=== PATIENT | male | born 1960 | race Caucasian/White ===

== ENCOUNTER 2018-07-30 17:34 | Emergency (ER) | payer SELFPAY ==
[~2018-07-30] VITALS: Ht 172.7 cm; Wt 120.0 kg
[2018-07-30 17:40] VITALS: Ht 172.7 cm; Wt 120.0 kg
[2018-07-30] MEDS ORDERED: SOD CHLORIDE 0.9% 500 ML IV STA (17:53)
[2018-07-30] MEDS ORDERED: ASPIRIN 81 MG TAB PO STA (17:53)
--- NOTE | 2018-07-30 18:53 | ERD ---
ER Documentation Chief Complaint Chief Complaint ANNE FROM CANCER CENTER C/O CHEST PAIN, NTG ADMINISTERED EN ROUTE HPI This is a 57-year-old male with a history of lymphoma diagnosed in February 2018 presenting from his cancer center complaining of chest pain and shortness of breath. He was given nitroglycerin prior to arrival with improvement of his symptoms. 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 He also has a history of CAD with heart attack, CHF, and hypertension. His daughter, he recently arrived in the [facility] a few weeks ago. He was not feeling well so he was taken to [facility] where he was diagnosed with lymphoma and admitted. He is currently still admitted at [facility]. He was at the radiology center getting radiation therapy as he has been doing every day for the past 2 weeks. That is when he developed the chest pain and he was brought here for evaluation. Currently the patient states he has no symptoms of chest pain and it has resolved after the nitroglycerin. He is not complaining of any shortness of breath. He does have swelling in his bilateral upper extremities but he states that is chronic and improved since he started treatment. He is still undergoing chemotherapy at the outside hospital as well. ROS All systems reviewed and are negative except as per history of present illness. Medications Home Meds No Active Prescriptions or Reported Meds Allergies Allergies: Coded Allergies: No Known Allergy (Unverified , 07/30/18) PMhx/Soc Medical and Surgical Hx: pt denies Medical Hx, pt denies Surgical Hx History of Surgery: Yes (HEART SX, CANCER BIOPSY) Anesthesia Reaction: No Hx Neurological Disorder: No Hx Respiratory Disorders: Yes (METASTATIC CANCER OVERLAPPING LT LUNG) Hx Cardiac Disorders: Yes (CHF, HTN) Hx Psychiatric Problems: No Hx Miscellaneous Medical Probl: Yes (METASTATIC LYMPHOMA) Hx Alcohol Use: No Hx Substance Use: No Hx Tobacco Use: Yes Smoking Status: Former smoker FmHx Family History: No diabetes Physical Exam Vitals Vital Signs Date Temp Pulse Resp B/P (MAP) Pulse Ox O2 O2 Flow FiO2 Time Delivery Rate 07/30/18 Nasal 2 18:38 Cannula 07/30/18 101 17 132/69 98 Room Air 2.0 18:36 (90) 07/30/18 98.4 97 22 132/69 97 17:40 (90) 07/30/18 Nasal 2 17:40 Cannula Physical Exam Const: No acute distress Head: Atraumatic Eyes: Normal Conjunctiva ENT: Normal External Ears, Nose and Mouth. Neck: Full range of motion. No meningismus. Resp: Clear to auscultation bilaterally Cardio: Regular rate and rhythm, no murmurs Abd: Soft, non tender, non distended. Normal bowel sounds Skin: No petechiae or rashes Back: No midline or flank tenderness Ext: No cyanosis, bilateral upper extremity pitting edema, left worse than right, chronic per patient. No bilateral lower extremity edema or calf tenderness Neur: Awake and alert, normal speech, no facial asymmetry, moving all extremities spontaneously Psych: Normal Mood and Affect Result Diagram: 07/30/18190307/30/181902 Results 24 hrs Laboratory Tests Test 07/30/18 19:03 07/30/18 19:04 Activated Partial Thromboplast Time 25.8 Sec Sodium Level 130 mmol/L Potassium Level 4.5 mmol/L Chloride Level 96 mmol/L Carbon Dioxide Level 26 mmol/L Anion Gap 8 Blood Urea Nitrogen 20 mg/dl Creatinine 0.55 mg/dl Est Glomerular Filtrat Rate mL/min > 60 mL/min Glucose Level 134 mg/dl Calcium Level 8.9 mg/dl Total Bilirubin 0.1 mg/dl Direct Bilirubin 0.00 mg/dl Indirect Bilirubin 0.1 mg/dl Aspartate Amino Transf (AST/SGOT) 24 IU/L Alanine Aminotransferase (ALT/SGPT) 18 IU/L Alkaline Phosphatase 84 IU/L Troponin I 0.053 ng/ml B-Type Natriuretic Peptide 133 PG/ML Total Protein 7.2 g/dl Albumin 3.7 g/dl Globulin 3.50 g/dl Albumin/Globulin Ratio 1.05 White Blood Count 3.7 10^3/ul Red Blood Count 3.32 10^6/ul Hemoglobin 9.8 g/dl Hematocrit 29.8 % Mean Corpuscular Volume 89.8 fl Mean Corpuscular Hemoglobin 29.5 pg Mean Corpuscular Hemoglobin Concent 32.9 g/dl Red Cell Distribution Width 15.4 % Platelet Count 256 10^3/UL Mean Platelet Volume 9.6 fl Immature Granulocytes % 0.800 % Neutrophils % 72.4 % Lymphocytes % 18.5 % Monocytes % 2.1 % Eosinophils % 5.1 % Basophils % 1.1 % Nucleated Red Blood Cells % 0.0 /100WBC Immature Granulocytes # 0.030 10^3/ul Neutrophils # 2.7 10^3/ul Lymphocytes # 0.7 10^3/ul Monocytes # 0.1 10^3/ul Eosinophils # 0.2 10^3/ul Basophils # 0.0 10^3/ul Nucleated Red Blood Cells # 0.0 10^3/ul Current Medications Medications Dose Sig/Mary Ann Start Time Status Last (Trade) Ordered Route PRN Stop Time Admin Dose Reason Admin Sodium 500 ml @ Q1H STAT 07/30/18 DC 07/30/18 Chloride 500 mls/hr IV 17:53 07/30/18 18:35 18:52 Aspirin 162 mg ONCE STAT 07/30/18 DC 07/30/18 (Aspirin) PO 17:53 07/30/18 18:35 17:54 Procedures/MDM EMERGENT LABS AND DIAGNOSTIC STUDIES: Lab Results above were reviewed and interpreted by me. CBC: Leukopenia, mild anemia, no evidence of thrombocytosis or thrombocytopenia CMP: Mild hyponatremia. No evidence of renal failure, hypoglycemia, acidosis, liver disease or biliary obstruction Troponin within normal limits, not indicative of cardiac ischemia 12-lead EKG was interpreted by Agnes Palacios MD: Normal Sinus Rhythm Normal axis Normal intervals Inferior Q waves No acute ST or T wave changes suggestive of acute ischemia or STEMI. Radiology Results as interpreted by Radiology below were reviewed by SJanine Palacios MD: Chest x-ray: IMPRESSION: 1. Recommend CT examination the chest for further evaluation of 75 mm central opacity. 2. Differential considerations include neoplasm. 3. Left lung base atelectasis versus airspace disease versus pleural effusion. 4. Patchy air space disease throughout the remaining left lung. RPTAT: [facility] Physician Elizabeth Date Time Electronically viewed and signed by Physician Elizabeth on 07/30/2018 18:50 Initial Nursing notes reviewed. Previous Medical Records requested via the Electronic Health Record. EMERGENCY DEPARTMENT COURSE / MEDICAL DECISION MAKING: This is a patient with known cardiac disease and known lymphoma undergoing lymp jordon treatment currently at an outside hospital. Upon presentation, the patient was asymptomatic. His workup showed abnormalities on chest x-ray that are consistent with his lymphoma. Otherwise his troponin was within normal limits. EKG did not show signs of ischemia. Patient and daughter are requesting transfer back to [facility], so the patient can continue his treatment there. I have been talking to the transfer center to get arrangements for this patient to go back there. After several hours, they told me a bed was available. I have not spoken to the accepting physician yet. Patient will be signed out to the oncoming ED physician. Patient stable for transfer via ambulance. Departure Diagnosis: Primary Impression: Chest pain Chest pain type: unspecified Qualified Codes: R07.9 - Chest pain, unspecified Additional Impressions: Small cell carcinoma Hyponatremia Leukopenia Leukopenia type: unspecified Qualified Codes: D72.819 - Decreased white blood cell count, unspecified Anemia Anemia type: unspecified type Qualified Codes: D64.9 - Anemia, unspecified SVC syndrome History of coronary artery disease Condition: WESLEY Montemayor MD Jul 30, 2018 18:53
[2018-07-31 01:45] VITALS: BP 161/91; PULSE 100; RESP 16
== END 2018-07-31 01:45 | disposition short-term general hospital (02) ==
LOC: E/R 17:34
DX: C34.90 Malignant neoplasm of unspecified part of unspecified bronchus or lung (principal); E87.1 Hypo-osmolality and hyponatremia; D72.819 Decreased white blood cell count, unspecified; D64.9 Anemia, unspecified; I87.1 Compression of vein; I25.10 Atherosclerotic heart disease of native coronary artery without angina pectoris; I11.0 Hypertensive heart disease with heart failure; I10 Essential (primary) hypertension; I50.9 Heart failure, unspecified; Z85.72 Personal history of non-Hodgkin lymphomas; Z87.891 Personal history of nicotine dependence
CPT/HCPCS: 71045; 80053; 83880; 84484; 85025; 85730; 93005; 99285; J7040